=== PATIENT | male | born 1970 | race Caucasian/White ===

== ENCOUNTER 2017-12-15 08:25 | Emergency (ER) | payer SELFPAY ==
[~2017-12-15] VITALS: Ht 182.9 cm; Wt 91.0 kg
[2017-12-15 08:31] VITALS: BP 158/88; PULSE 111; RESP 22; TEMP 97.8; O2SAT 98
--- NOTE | 2017-12-15 08:49 | PD ---
HPI Chief Complaint: Complaint Time Seen by Provider: 08:46 Travel History International Travel<30 days: No Contact w/Intl Traveler<30days: No Traveled to known affect area: No History of Present Illness HPI 47-year-old male patient with history of no significant past medical issues, presents to the ER today because he states that his grandchild had accidentally kneed him in the groin about a week ago, since then he has been having some discomfort in the groin area but it got much worse yesterday and he started having increased swelling, pain in his right testicle. He states that at rest, is a 3 out of 10 pain but when something touches it, is a 20 out of 10. He denies any dysuria, fevers, vomiting, or any other symptoms. Modifying Factors: None Associated Signs & Symptoms: Painful, swollen right testicle Risk Factors: None PFSH Past Medical History Asthma: Yes (and emphysema) Influenza Vaccination: No Past Surgical History Surgical History: No Previous Surgery Social History Alcohol Use: Yes (3-4 BEERS DAILY ) Tobacco Use: Yes (1/2 - 1 PACK PER DAY ) Substance Use: No Allergies-Medications (Allergen,Severity, Reaction): Coded Allergies: No Known Allergies (Verified Adverse Reaction, Unknown, 12/15/17) Reported Meds & Prescriptions Reported Meds & Active Scripts Active No Active Prescriptions or Reported Medications Review of Systems Except as stated in HPI: all other systems reviewed are Neg Physical Exam Narrative GENERAL: Well-developed middle-age male patient currently and mild distress. Awake and oriented 3. SKIN: Focused skin assessment warm/dry. HEAD: Atraumatic. Normocephalic. EYES: Pupils equal and round. No scleral icterus. No injection or drainage. ENT: No nasal bleeding or discharge. Mucous membranes pink and moist. NECK: Trachea midline. No JVD. CARDIOVASCULAR: Regular rate and rhythm. No murmur appreciated. RESPIRATORY: No accessory muscle use. Clear to auscultation. Breath sounds equal bilaterally. GASTROINTESTINAL: Abdomen soft, non-tender, nondistended. Hepatic and splenic margins not palpable. MUSCULOSKELETAL: No obvious deformities. No clubbing. No cyanosis. No edema. GENITOURINARY: Circumcised. Testes descended bilaterally without notable right testicular edema, tenderness, erythema. No urethral discharge. NEUROLOGICAL: Awake and alert. No obvious cranial nerve deficits. Motor grossly within normal limits. Normal speech. PSYCHIATRIC: Appropriate mood and affect; insight and judgment normal. Data Data Last Documented VS Vital Signs Date Time Temp Pulse Resp B/P (MAP) Pulse Ox O2 Delivery O2 Flow Rate FiO2 12/15/17 08:31 97.8 111 22 158/88 (111) 98 Orders Orders Complete Blood Count With Diff (12/15/17 08:46) Basic Metabolic Panel (Bmp) (12/15/17 08:46) Urinalysis - C+S If Indicated (12/15/17 08:46) Us Testicles W Doppler (12/15/17 08:46) Gc And Chlamydia Pcr (12/15/17 08:46) Sodium Chloride 0.9% Flush (Ns Flush) (12/15/17 09:00) Mandatory Outpatient Referral (12/15/17 11:20) Ed Discharge Order (12/15/17 11:42) Labs Laboratory Tests Test 12/15/17 08:50 12/15/17 11:13 White Blood Count 20.0 TH/MM3 Red Blood Count 4.82 MIL/MM3 Hemoglobin 14.8 GM/DL Hematocrit 43.1 % Mean Corpuscular Volume 89.4 FL Mean Corpuscular Hemoglobin 30.7 PG Mean Corpuscular Hemoglobin Concent 34.4 % Red Cell Distribution Width 13.7 % Platelet Count 190 TH/MM3 Mean Platelet Volume 7.7 FL Neutrophils (%) (Auto) 84.6 % Lymphocytes (%) (Auto) 6.5 % Monocytes (%) (Auto) 8.6 % Eosinophils (%) (Auto) 0.2 % Basophils (%) (Auto) 0.1 % Neutrophils # (Auto) 17.0 TH/MM3 Lymphocytes # (Auto) 1.3 TH/MM3 Monocytes # (Auto) 1.7 TH/MM3 Eosinophils # (Auto) 0.0 TH/MM3 Basophils # (Auto) 0.0 TH/MM3 CBC Comment DIFF FINAL Differential Comment Blood Urea Nitrogen 6 MG/DL Creatinine 0.96 MG/DL Random Glucose 163 MG/DL Calcium Level 9.3 MG/DL Sodium Level 135 MEQ/L Potassium Level 4.0 MEQ/L Chloride Level 100 MEQ/L Carbon Dioxide Level 25.3 MEQ/L Anion Gap 10 MEQ/L Estimat Glomerular Filtration Rate 85 ML/MIN Urine Color YELLOW Urine Turbidity CLEAR Urine pH 7.0 Urine Specific Mcgregor 1.003 Urine Protein NEG mg/dL Urine Glucose (UA) NEG mg/dL Urine Ketones NEG mg/dL Urine Occult Blood SMALL Urine Nitrite NEG Urine Bilirubin NEG Urine Urobilinogen LESS THAN 2 mg/dL Urine Leukocyte Esterase SMALL Urine RBC 1 /hpf Urine WBC 3 /hpf Urine Squamous Epithelial Cells <1 /hpf Microscopic Urinalysis Comment CULT NOT INDICATED MDM Medical Decision Making Medical Screen Exam Complete: Yes Emergency Medical Condition: Yes Medical Record Reviewed: Yes Interpretation(s) Laboratory Tests Test 12/15/17 08:50 12/15/17 11:13 White Blood Count 20.0 TH/MM3 (4.0-11.0) Neutrophils (%) (Auto) 84.6 % (16.0-70.0) Lymphocytes (%) (Auto) 6.5 % (9.0-44.0) Monocytes (%) (Auto) 8.6 % (0.0-8.0) Neutrophils # (Auto) 17.0 TH/MM3 (1.8-7.7) Monocytes # (Auto) 1.7 TH/MM3 (0-0.9) Blood Urea Nitrogen 6 MG/DL (7-18) Random Glucose 163 MG/DL (74-106) Sodium Level 135 MEQ/L (136-145) Estimat Glomerular Filtration Rate 85 ML/MIN (>89) Urine Occult Blood SMALL (NEG) Urine Leukocyte Esterase SMALL (NEG) Last 24 hours Impressions Scrotum Ultrasound 12/15/17 0846 Signed Impressions: CONCLUSION: 1. Small complex right hydrocele containing multiple septations. This could be secondary to an infectious process or blood products. 2. Heterogeneous masslike abnormality in the right hemiscrotum abutting the te sticle. This could represent an enlarged epididymis related to inflammation or trauma. Suggest follow-up ultrasound to confirm resolution. Differential Diagnosis Right testicular swelling, pain: Orchitis versus testicular torsion versus mass Narrative Course Lab work shows leukocytosis. He is afebrile. Testicular ultrasound shows: Masslike lesion on the right testicle concerning for possible inflammation versus hematoma, also some signs of epididymal inflammation. Case was discussed with Dr. Sanchez who states that the patient can be put on Cipro and follow-up in his clinic on Saturday, he can do follow-up ultrasound from there. Warm compresses meanwhile. Return for worsening in pain or new issues as needed. The plan has been discussed with him and he states understanding. Diagnosis Primary Impression: Testicular pain, right Med/Other Pt SpecificInfo: Prescription(s) given Scripts Ibuprofen (Ibuprofen) 600 Mg Tab 600 MG PO Q6H Y for Pain/Inflammation, #20 TAB 0 Refills Prov: Africa Hodges MD 12/15/17 Ciprofloxacin (Cipro) 500 Mg Tab 500 MG PO BID for Infection for 7 Days, #14 TAB 0 Refills Prov: Africa Hodges MD 12/15/17 Disposition: 01 DISCHARGE HOME Condition: Stable Africa Hodges MD Dec 15, 2017 08:49
[2017-12-15] MEDS ORDERED: SODIUM CHLORIDE 0.9% FLUSH 10 ML FLUSH IVF PRN (09:00)
[2017-12-15 09:19] LABS: BASOPHIL % 0.1 % (0.0-2.0); EOSINOPHIL % 0.2 % (0.0-4.0); HEMATOCRIT 43.1 % (39.0-51.0); HEMOGLOBIN 14.8 GM/DL (13.0-17.0); LYMPH % 6.5 % (9.0-44.0); LYMPHOCYTE # 1.3 TH/MM3 (1.0-4.8); MEAN CELL VOLUME 89.4 FL (80.0-100.0); MEAN CORPUSCULAR HEMOGLOBIN 30.7 PG (27.0-34.0); MEAN CORPUSCULAR HGB CONC 34.4 % (32.0-36.0); MEAN PLATELET VOLUME 7.7 FL (7.0-11.0); MONO % 8.6 % (0.0-8.0); MONOCYTE # 1.7 TH/MM3 (0-0.9); NEUT % 84.6 % (16.0-70.0); PLATELET COUNT 190 TH/MM3 (150-450); RED BLOOD COUNT 4.82 MIL/MM3 (4.50-5.90); RED CELL DISTRIBUTION WIDTH 13.7 % (11.6-17.2)
[2017-12-15 09:42] LABS: BICARBONATE 25.3 MEQ/L (21.0-32.0); CALCIUM 9.3 MG/DL (8.5-10.1); CREATININE 0.96 MG/DL (0.60-1.30)
--- NOTE | 2017-12-15 10:53 | RADRPT ---
EXAM DATE: 12/15/2017 10:42 AM EDT AGE/SEX: 47 years / Male INDICATIONS: Right testicular swelling due to injury. CLINICAL DATA: This is the patient's initial encounter. Patient reports that signs and symptoms have been present for 1 week and indicates a pain score of 10/10. MEDICAL/SURGICAL HISTORY: Emphysema. Asthma. . COMPARISON: No prior exams available for comparison. MEASUREMENTS (cm x cm x cm): Right Testicle:__4.5 x 3.4 x 3.0 cm Left Testicle:__5.1 x 3.4 x 3.2 cm FINDINGS: Right Testicle: No intratesticular mass is identified. Blood flow within the testicle is within norm al limits. There is a septated hydrocele present. Heterogeneous echotexture tissue is posterior and p artially surrounding the right testicle. Left Testicle: Homogeneous echotexture without intra or extratesticular mass. Blood flow is symmetr ic and within normal limits. No hydrocele or varicocele. Epididymis is within normal limits. Scrotum: Within normal limits. CONCLUSION: 1. Small complex right hydrocele containing multiple septations. This could be secondary to an infec tious process or blood products. 2. Heterogeneous masslike abnormality in the right hemiscrotum abutting the testicle. This could rep resent an enlarged epididymis related to inflammation or trauma. Suggest follow-up ultrasound to conf irm resolution. Electronically signed by: Jose Gee MD 12/15/2017 10:52 AM EDT
[2017-12-15 11:30] LABS: BILIRUBIN, URINE NEG (NEG); BLOOD, URINE SMALL (NEG); GLUCOSE,URINE NEG (NEG); KETONE, URINE NEG (NEG); NITRITE,URINE NEG (NEG); SQUAMOUS EPITHELIAL CELL URINE <1 /hpf (0-5); URINE COLOR YELLOW (YELLW/STRAW); URINE LEUKOCYTE ESTERASE SMALL (NEG)
[2017-12-15] MEDS ORDERED: CIPR-9 PO (11:48)
[2017-12-15] MEDS ORDERED: IBUP-232 PO (11:48)
[2017-12-15] MEDS ORDERED: traMADol/ACETAMINOPHEN 37.5/325 1 TAB PO ONE (12:00)
[2017-12-15] MEDS ORDERED: CIPROFLOXACIN 500 MG TAB PO ONE (12:00)
[2017-12-15] MEDS ORDERED: traMADol HCL 50 MG TAB PO ONE (12:00)
== END 2017-12-15 12:24 | disposition home or self-care (01) ==
LOC: NEPE 08:25
DX: N50.811 Right testicular pain (principal); J45.909 Unspecified asthma, uncomplicated; J43.9 Emphysema, unspecified; F17.200 Nicotine dependence, unspecified, uncomplicated
CPT/HCPCS: 76870; 80048; 81001; 85025; 87491; 87591; 93975